=== PATIENT | male | born 1985 | race Caucasian/White ===

== ENCOUNTER 2018-07-05 02:30 | Emergency (ER) | payer SELFPAY ==
[~2018-07-05] VITALS: Ht 154.9 cm; Wt 65.8 kg
[2018-07-05 02:49] VITALS: BP 159/98
--- NOTE | 2018-07-05 02:50 | NUR ---
PT AMBULATED TO BED 11 WITH VSS.
--- NOTE | 2018-07-05 03:18 | NUR ---
PT PRESENTS ED WITH CO ABDOMINAL PAIN 12/09 WITH N/V. ABDOMEN SOFT, NON TENDER. PAIN X 1 DAY. MD MADE AWARE OF STATUS.
--- NOTE | 2018-07-05 03:30 | NUR ---
Dr. Franklin evaluating patient at bedside.
[2018-07-05] MEDS ORDERED: DICYCLOMINE HCL LIQUID 20 MG, ALUMINUM HYD/MAG/SIMETHICONE 30 ML, LIDOCAINE VISCOUS 2% ... PO ONE ×3 (03:40)
--- NOTE | 2018-07-05 04:46 | NUR ---
Patient discharged with v/s stable. Written and verbal after care instructions given and explained. Patient alert, oriented and verbalized understanding of instructions. Ambulatory with steady gait. All questions addressed prior to discharge. ID band removed. Patient advised to follow up with PMD. Rx of MYLANTA given. Patient educated on indication of medication including possible reaction and side effects. Opportunity to ask questions provided and answered.
[2018-07-05 04:50] VITALS: BP 115/64
== END 2018-07-05 04:46 | disposition home or self-care (01) ==
LOC: MED 02:30
DX: R10.13 Epigastric pain (principal); R10.10 Upper abdominal pain, unspecified
CPT/HCPCS: 99283